=== PATIENT | female | born 1960 | race Caucasian/White ===

== ENCOUNTER 2016-12-13 02:15 | Inpatient (IN) ==
--- NOTE | 2016-11-30 12:30 | EKG Report ---
Test Performed on : 11/30/2016 12:20:44 PM Test Reason : PAT Blood Pressure : / mmHG Vent. Rate : 081 BPM Atrial Rate : 081 BPM P-R Int : 176 ms QRS Dur : 084 ms QT Int : 382 ms P-R-T Axes : 061 042 051 degrees QTc Int : 443 ms Normal sinus rhythm. Normal ECG No previous ECGs available Confirmed by Zoltan LOTT, Manuel Santos ([id number]) on 12/01/2016 9:29:08 AM
[2016-11-30 13:02] LABS: MANUAL DIFF NEEDED? NO; URINE MICRO REVIEW NEEDED? NO; URINE SOURCE CLEAN CATCH
[2016-11-30 13:12] LABS: BASO% 0.4 % (0.0-0.8); EOS# 0.16 X1000 (0.0-0.7); EOS% 1.5 % (0.0-10.0); HEMATOCRIT 41.7 % (37.0-47.0); HEMOGLOBIN 13.3 g/dL (12.0-16.0); LYMPH% 30.8 % (20.5-51.1); MCH 29.9 PG (27-31); MCHC 31.9 g/dL (33-37); MCV 93.7 FL (81-99); MONO# 0.83 X1000 (0.11-0.59); MONO% 7.5 % (1.7-9.3); NEUT% 59.8 % (42.2-75.2); PLT 348 X1000 (130-400); RBC 4.45 XMIL (4.2-5.4)
[2016-11-30 13:16] LABS: BILIRUBIN URINE NEGATIVE (NEGATIVE); BLOOD URINE TRACE (NEGATIVE); COLOR YELLOW; GLUCOSE URINE NEGATIVE (NEGATIVE); LEUKOCYTES URINE NEGATIVE (NEGATIVE); NITRITE URINE NEGATIVE (NEGATIVE); PROTEIN URINE NEGATIVE (NEGATIVE); SP GRAVITY URINE 1.018; TURBIDITY URINE CLEAR (CLEAR); UROBILINOGEN URINE NORMAL (NORMAL)
[2016-11-30 13:17] LABS: UR EPITHELIAL CELLS <10 /HPF (<10); URINE BACTERIA NEGATIVE /HPF; URINE RBC <10 /HPF (<10); URINE WBC <10 /HPF (<10)
[2016-11-30 13:39] LABS: CALCIUM 9.6 mg/dL (8.8-10.2); POTASSIUM 3.3 mmol/L (3.5-5.1)
[2016-11-30 13:43] LABS: INR 0.99; PROTIME 10.1 Seconds (9.2-11.7)
[2016-12-13] MEDS ORDERED: COLACE ONE (05:22)
[2016-12-13] MEDS ORDERED: PEPCID ONE (05:22)
[2016-12-13] MEDS ORDERED: REGLAN ONE (05:22)
[2016-12-13] MEDS ORDERED: KEFZOL 2 GM/D5W 50 ML ONE (05:23)
[2016-12-13] MEDS ORDERED: LYRICA ONE (05:23)
[2016-12-13] MEDS ORDERED: LR 1,000 ML ONE (05:23)
[2016-12-13] MEDS ORDERED: TORADOL ONE (06:32)
[2016-12-13] MEDS ORDERED: MARCAINE 0.25% PF/EPI 1:200,000 ONE (06:32)
[2016-12-13] MEDS ORDERED: DURAMORPH ONE (06:32)
[2016-12-13] MEDS ORDERED: SODIUM CHLORIDE 0.9% ONE (06:33)
[2016-12-13] MEDS ORDERED: NEOSPORIN G.U. IRRIGANT ONE (06:33)
[2016-12-13] MEDS ORDERED: EXPAREL 1.3% ONE (06:33)
[2016-12-13] MEDS ORDERED: PATIENT'S OWN MED PO PRN (06:51)
[2016-12-13] MEDS ORDERED: NORCO-10 PO PRN (06:51)
[2016-12-13] MEDS ORDERED: SOMA PO PRN (06:51)
[2016-12-13] MEDS ORDERED: LEVSIN PO PRN (06:51)
[2016-12-13] MEDS ORDERED: MAXALT PO PRN (06:51)
[2016-12-13] MEDS ORDERED: CLAVE SECONDARY SET 11953 ONE ×2 (07:37→10:14)
[2016-12-13] MEDS ORDERED: CYKLOKAPRON 1,000 MG/NS 100 ML ONE (07:37)
[2016-12-13 08:34] LABS: URINE CULTURE NEEDED? NO; URINE MICRO REVIEW NEEDED? NO; URINE SOURCE CATH
[2016-12-13 08:46] LABS: BILIRUBIN URINE NEGATIVE (NEGATIVE); BLOOD URINE NEGATIVE (NEGATIVE); COLOR YELLOW; GLUCOSE URINE NEGATIVE (NEGATIVE); LEUKOCYTES URINE NEGATIVE (NEGATIVE); NITRITE URINE NEGATIVE (NEGATIVE); PROTEIN URINE NEGATIVE (NEGATIVE); TURBIDITY URINE CLEAR (CLEAR); UROBILINOGEN URINE NORMAL (NORMAL)
[2016-12-13 08:49] LABS: UR EPITHELIAL CELLS <10 /HPF (<10); URINE BACTERIA NEGATIVE /HPF; URINE RBC <10 /HPF (<10); URINE WBC <10 /HPF (<10)
[2016-12-13] MEDS ORDERED: ACIPHEX PO SCH (09:00)
[2016-12-13] MEDS ORDERED: DILAUDID ONE ×2 (09:31→09:57)
[2016-12-13] MEDS: PHENERGAN ONE ×2 (09:37→10:05)
--- NOTE | 2016-12-13 09:40 | Diag Imaging Result Document ---
PROCEDURE NAME: FLUROSCOPY - C-ARM - 12/13/2016 LIMITED FLUOROSCOPIC IMAGES OF THE PELVIS AND RIGHT HIP, 3 VIEWS: COMPARISON: None available. FINDINGS: Three limited spot fluoroscopic images were provided, which was performed during right hip arthroplasty by Dr. Valentin. The newly placed arthroplasty hardware on the right is in the expected position. These limited views are grossly unremarkable, otherwise. IMPRESSION: As above. Please correlate with live fluoroscopic imaging.
[2016-12-13] MEDS ORDERED: NS 1,000 ML ONE (09:57)
[2016-12-13] MEDS ORDERED: ZOFRAN ONE (10:14)
[2016-12-13] MEDS ORDERED: NEO-SYNEPHRINE ONE (10:14)
[2016-12-13] MEDS ORDERED: OFIRMEV 1000 MG/ISOTONIC SOLN 100 ML ONE (10:14)
[2016-12-13] MEDS ORDERED: LR 2,000 ML ONE (10:14)
[2016-12-13] MEDS ORDERED: QUELICIN (DOSE) ONE (10:14)
[2016-12-13] MEDS ORDERED: DECADRON ONE (10:14)
[2016-12-13] MEDS ORDERED: XYLOCAINE-MPF 2% ONE (10:14)
[2016-12-13] MEDS ORDERED: EPHEDRINE ONE (10:14)
--- NOTE | 2016-12-13 13:12 | OPERATIVE NOTE ---
PROCEDURE DATE: 12/13/2016 PREOPERATIVE DIAGNOSIS: Degenerative joint disease, right hip. POSTOPERATIVE DIAGNOSIS: Degenerative joint disease, right hip. PROCEDURE: Right anterior hip replacement. SURGEON: Karma Valentin MD RETORT KILN BURNER: MARISA Haskins ANESTHESIA: General. COMPLICATION: None. PROCEDURE IN DETAIL: A 56-year-old female presents for a right anterior hip replacement. Risks, benefits, and no guarantees were discussed, and she is willing to proceed. She was taken to the operating room and satisfactory anesthesia obtained. The right hip was prepped and draped in the usual sterile fashion. A time-out was taken confirm operative site, procedure, and patient. The patient was then transferred to the [place] table and the hip prepped and draped in the usual sterile fashion. After ensuring a proper time-out, an anterior incision was made over the right hip starting a cm distal and lateral to the anterior superior iliac spine. Dissection was carried down through the skin for roughly 12 cm incision to the fascia of the tensor fascia sindy. This was split in line with the incision and blunt dissection along the inner membrane taken down to the anterior hip capsule. Cobra retractor was placed over the superior and inferior aspect of the femoral neck and a capsulotomy incision made. A femoral neck osteotomy was made roughly 8 mm above the lesser trochanter and the femoral head neck size. Sequential reaming of the acetabulum was undertaken up to a 51 reamer. A DePuy [place] TRAN coated 52 cup was then impacted in the acetabulum under fluoroscopic guidance in roughly 10 degrees of anteversion and 45 degrees of abduction. This had initial secure press-fit fixation. An additional 25 length screw was placed in the 12 o'clock position of the cup and an inner diameter 36 polyethylene liner inserted into the cup and secured. This was impacted and checked for security and noted to be secure both with the liner cup interface and cup bone interface. Next, the [place] table was used to extend the hip and externally rotate it to allow sequential broaching of the proximal femur. Sequential broaching with a DePuy [place] broach up to a size 11 stem was undertaken, which had good axial and rotational stability. A standard neck geometry with a 1.5 head and neck revealed good confucianist of leg length and stability. The trial stem was removed and a [place] standard neck size 11 stem impacted in the proximal femur with secure axial and rotational stability. A 36 ceramic head with a +1.5 neck taper was impacted onto this. The hip was reduced. C-arm used to verify accurate confucianist of leg lengths. No anterior or posterior instability was noted. The wound was copiously irrigated with irrigant. The joint capsule was injected with Exparel for pain management. A Hemovac drain was placed. The fascia of the tensor was closed with a running 0 Vicryl the subcutaneous with 2-0 Vicryl, and the skin with skin kieran. Sterile dressings completed the closure and the patient was recovered from anesthesia and transferred to the recovery room in stable condition. No intraoperative complications were noted. Instrument count and sponge count was correct at the time of closure.
[2016-12-13] MEDS: GLUCOPHAGE PO SCH ×2 (13:19→16:52)
[2016-12-13] MEDS: XANAX PO SCH ×3 (13:20→23:59)
[2016-12-13] MEDS: PRILOSEC PO SCH ×2 (13:20→20:50)
[2016-12-13] MEDS: NEURONTIN PO SCH ×4 (13:20→20:50)
[2016-12-13] MEDS: MOTRIN PO SCH ×2 (13:21→16:52)
[2016-12-13] MEDS: LIPITOR PO SCH (13:21)
[2016-12-13] MEDS: HYDROXYZINE PO SCH ×3 (13:22→16:51)
[2016-12-13] MEDS: LIBRAX PO SCH ×3 (13:22→20:51)
[2016-12-13] MEDS: KLOR-CON PO SCH (13:22)
[2016-12-13] MEDS: HYDROCHLOROTHIAZIDE PO SCH ×2 (13:23→16:54)
[2016-12-13] MEDS: DETROL LA PO SCH (13:23)
[2016-12-13] MEDS: COLACE PO SCH ×2 (13:24→20:51)
[2016-12-13] MEDS: COZAAR PO SCH (13:24)
[2016-12-13] MEDS: CELEXA PO SCH (13:25)
[2016-12-13] MEDS ORDERED: CYKLOKAPRON 1,000 MG in NS 100 ML IV ONE (13:40)
[2016-12-13] MEDS ORDERED: FENTANYL ONE (14:59)
[2016-12-13] MEDS ORDERED: VERSED ONE (14:59)
[2016-12-13] MEDS ORDERED: DIPRIVAN 1% ONE (15:00)
[2016-12-13] MEDS: KEFZOL 1 GM/D5W 50 ML IV SCH ×2 (15:38→23:59)
--- NOTE | 2016-12-13 15:55 | HISTORY AND PHYSICAL ---
CHIEF COMPLAINT: Right hip pain. HISTORY OF PRESENT ILLNESS: This is a 56-year-old white female with a history of degenerative disease of the right hip. She has been treated conservatively without relief. She was evaluated in the office and found to need a right total hip arthroplasty. The surgical procedure, as well as risks and benefits were explained to patient and at this time is ready to proceed. PAST MEDICAL HISTORY: ALLERGIES: Sulfa. SERIOUS ILLNESSES: Hypertension, seizures, diabetes, thyroid disorder. PAST SURGERIES: A neck fusion, and knee scope. REGULAR MEDICATIONS: Albuterol 2 puffs p.r.n., Xanax 1 mg 4 times a day, Lipitor 80 once a day, Soma 350 p.r.n., Librax one 4 times a day, Celexa 40 once a day, gabapentin 40 four times a day, hydrochlorothiazide 12.5, 4 times a day, hydrocodone p.r.n. pain Atarax 50 three times a day, Levsin 0.125 twice a day, ibuprofen p.r.n., Cozaar 100 once a day, metformin 500 twice a day, Klor- Con 10 once a day, AcipHex 20 twice a day, Maxalt 10 p.r.n. and Detrol 4 mg once a day. REVIEW OF SYSTEMS: HEENT: Has a history of seizures and migraines. She takes medication for this. Heart: No history of chest pain, [place] but she states she has an occasional irregular heart rate. Respiratory: She uses an inhaler and she smokes but she states she does not have asthma or emphysema and she is not really sure why she takes the inhaler. Abdomen: History of irritable bowel syndrome. She takes medication for this. PHYSICAL EXAMINATION: GENERAL: This is a 56-year-old white female. Her primary care physician is Dr. Blanc. HEENT: Pupils equal, round, reactive. NECK: Fair range of motion. She has had a fusion. RESPIRATORY: Respirations equal, unlabored, clear bilaterally. HEART: Regular rate and rhythm. ABDOMEN: Soft, nontender. Bowel sounds present. EXTREMITIES: She complains of right hip pain. Sometimes it radiates down her right leg. She states she at times has difficulty walking. She has good sensation and pulses distally. IMPRESSION: Degenerative disease right hip. PLAN: Admit at this time for right total hip arthroplasty.
[2016-12-13] MEDS: NS 1,000 ML IV SCH (17:56)
[2016-12-13] MEDS ORDERED: PNEUMOVAX 23 IM ONE (19:30)
[2016-12-13] MEDS: NORCO-10 PO PRN (20:51)
[2016-12-13] MEDS: PERIDEX MT SCH (20:54)
[2016-12-13] MEDS: MORPHINE IV PRN (23:59)
[2016-12-14] MEDS: NORCO-10 PO PRN ×2 (01:01→05:07)
[2016-12-14] MEDS: HYDROCHLOROTHIAZIDE PO SCH ×3 (02:03→13:01)
[2016-12-14] MEDS: MORPHINE IV PRN (04:02)
[2016-12-14] MEDS ORDERED: MORPHINE IV PRN (04:32)
[2016-12-14] MEDS ORDERED: MOTRIN PO PRN (04:35)
[2016-12-14] MEDS: NS 1,000 ML IV SCH ×3 (05:07→12:53)
[2016-12-14] MEDS: VENTOLIN HFA INH PRN ×2 (05:13→11:26)
[2016-12-14] MEDS ORDERED: XARELTO PO SCH (06:00)
[2016-12-14 06:15] LABS: HEMATOCRIT 26.7 % (37.0-47.0); HEMOGLOBIN 8.4 g/dL (12.0-16.0)
[2016-12-14 06:50] LABS: CALCIUM 7.8 mg/dL (8.8-10.2); POTASSIUM 4.3 mmol/L (3.5-5.1)
[2016-12-14] MEDS ORDERED: PERCOCET-10 PO PRN (07:41)
[2016-12-14] MEDS: NEURONTIN PO SCH ×2 (10:00→12:56)
[2016-12-14] MEDS: LIBRAX PO SCH ×2 (10:01→12:56)
[2016-12-14] MEDS: CELEXA PO SCH (10:01)
[2016-12-14] MEDS: PERIDEX MT SCH (10:01)
[2016-12-14] MEDS: DETROL LA PO SCH (10:01)
[2016-12-14] MEDS: COLACE PO SCH (10:02)
[2016-12-14] MEDS: LIPITOR PO SCH (10:02)
[2016-12-14] MEDS: PRILOSEC PO SCH (10:02)
[2016-12-14] MEDS: KLOR-CON PO SCH (10:02)
[2016-12-14] MEDS: COZAAR PO SCH (10:03)
[2016-12-14] MEDS: HYDROXYZINE PO SCH ×2 (10:04→13:03)
[2016-12-14] MEDS: XANAX PO SCH ×2 (10:04→13:03)
[2016-12-14] MEDS: GLUCOPHAGE PO SCH (10:05)
[2016-12-14 14:14] VITALS: BP 99/55
--- NOTE | 2016-12-14 16:29 | DISCHARGE SUMMARY ---
ADMISSION DATE: 12/13/2016 DISCHARGE DATE: 12/14/2016 ADMITTING DIAGNOSIS: Degenerative joint disease right hip. ADDITIONAL DIAGNOSES: 1. Hypertension. 2. Seizures. 3. Diabetes. 4. Thyroid disorder. DISCHARGE DIAGNOSES: 1. Degenerative joint disease of the right hip. 2. Hypertension. 3. Seizures. 4. Diabetes. 5. Thyroid disorder. ADMITTING HISTORY AND HOSPITAL COURSE: Ms Carvajal has a history of right hip pain and found to have degenerative joint disease of the right hip. She was admitted to the hospital on 12/13/2016 for a right total hip arthroplasty. After her surgery she remained afebrile and her vital signs remained stable. Currently her hematocrit is 26.7 and she is ambulating with a walker. She ambulated 150 feet with a front wheel walker without difficulty. Her bandage is dry. The incision looks good. There is no drainage noted. No signs of DVT or infection. We plan on discharging her home today and she is going to begin an outpatient physical therapy regimen tomorrow. DISCHARGE MEDICATIONS: 1. Neurontin 600 mg 2 tablets p.o. 4 times a day. 2. Detrol 4 mg p.o. daily. 3. AcipHex 20 mg p.o. b.i.d. 4. Hydrochlorothiazide 12.5 mg p.o. 4 times a day. 5. Sanford 10, 1-2 p.o. q.4-6 hours p.r.n. for pain. 6. Potassium chloride ER 10 mEq p.o. daily. 7. Librax 1 p.o. 4 times a day. 8. Metformin 500 mg p.o. b.i.d. 9. Cozaar 100 mg p.o. daily. 10. Atarax 50 mg p.o. t.i.d. 11. Xanax 1 mg p.o. 4 times a day. 12. Lipitor 80 mg p.o. daily. 13. Norel AD tablet 1 p.o. p.r.n. 14. ProAir HFA 8.5 g, 2 puffs inhaled 4 times a day. 15. Maxalt 10 mg p.o. p.r.n. 16. Celexa 40 mg p.o. daily. 17. Soma 350 mg p.o. 4 times a day p.r.n. 18. Xarelto 10 mg p.o. daily for 21 days. DISCHARGE INSTRUCTIONS: Ms. Carvajal is to be discharged home today and she will begin an outpatient physical therapy regimen. I have discussed with her that she will be discharged home with new medications, Sanford and Xarelto. If she has any worsening signs or symptoms, she will need to call us at the office. I discussed with her if she has any fever, chills or any discharge from her incision site to please let us know or symptoms of infection or DVT. She she can follow up with Dr. Valentin in about 10 days to have her kieran removed. Dictated by MARISA Haskins for Jacobo Valentin MD
== END 2016-12-14 14:00 | disposition home or self-care (01) | DRG 470 ==
LOC: SURHOLD 02:15 → 4N 08:18
PROVIDERS: ADMIT Orthopaedic Surgery Adult Reconstructive Orthopaedic Surgery; ATTEND Orthopaedic Surgery Adult Reconstructive Orthopaedic Surgery
PROC: 0SR904A Replacement of Right Hip Joint with Ceramic on Polyethylene Synthetic Substitute, Uncemented, Open Approach (ICD-10-PCS; principal; 2016-12-13 07:05)
DX: M16.11 Unilateral primary osteoarthritis, right hip (principal); R56.9 Unspecified convulsions; I10 Essential (primary) hypertension; E11.9 Type 2 diabetes mellitus without complications; Z98.1 Arthrodesis status; F32.9 Major depressive disorder, single episode, unspecified; F17.210 Nicotine dependence, cigarettes, uncomplicated; K58.9 Irritable bowel syndrome, unspecified; E07.9 Disorder of thyroid, unspecified; Z87.11 Personal history of peptic ulcer disease; M06.9 Rheumatoid arthritis, unspecified; Z79.84 Long term (current) use of oral hypoglycemic drugs; Z79.899 Other long term (current) drug therapy; Z23 Encounter for immunization
CPT/HCPCS: 76000; 80048; 81001; 85014; 85018; 85025; 85610; 85730; 86850; 86900; 86901; 88304; 88311; 90732; 93005; 93010; 94761; 94799; C9290; J0131; J0330; J0690; J1100; J1170; J1885; J2250; J2270; J2274; J2370; J2405; J2550; J3010; J7030; J7120; 94640-76; 97110-GP; 97116-GP; 97530-GP; S0020